=== PATIENT | male | born 1995 | race Caucasian/White ===

== ENCOUNTER 2021-06-18 21:38 | Emergency (ER) | payer BC, SELFPAY ==
[2021-06-18 21:39] VITALS: BP 153/90; PULSE 98; RESP 16; TEMP 36.7; O2SAT 100
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
[2021-06-19 00:01] VITALS: BP 127/85; PULSE 72; RESP 16; O2SAT 98
== END 2021-06-19 00:04 | disposition home or self-care (01) ==
PROVIDERS: Emergency Provider Emergency Medicine
DX: S01.112A Laceration without foreign body of left eyelid and periocular area, initial encounter (principal); W20.8XXA Other cause of strike by thrown, projected or falling object, initial encounter
CPT/HCPCS: 99282